=== PATIENT | male | born 1990 | race Caucasian/White ===

== ENCOUNTER 2019-01-11 13:21 | Emergency (ER) | payer BC ==
[~2019-01-11] VITALS: Ht 182.9 cm; Wt 84.1 kg
[~2019-01-11 13:21] MED LIST: ALBUPOW9 XX; PROZ10CA7 PO; TRAZ50TA2 PO
[2019-01-11] MEDS ORDERED: ADACEL/BOOSTRIX VACCINE (DIPHTH/PERTUSS/ACELL/TETANUS)0.5ML SYR (90715) IM ONE (14:15)
[2019-01-11] MEDS ORDERED: LIDOCAINE 2% MDV 20 ML VIAL SC ONE (14:15)
[2019-01-11] MEDS ORDERED: CEPHALEXIN 500 MG CAP PO ONE (15:00)
[2019-01-11] MEDS ORDERED: KEFL500C17 PO (15:12)
[2019-01-11 15:18] VITALS: BP 118/80
== END 2019-01-11 15:22 | disposition home or self-care (01) ==
LOC: M ED 13:21
DX: S61.216A Laceration without foreign body of right little finger without damage to nail, initial encounter (principal); S66.106A Unspecified injury of flexor muscle, fascia and tendon of right little finger at wrist and hand level, initial encounter; W26.0XXA Contact with knife, initial encounter; Y92.090 Kitchen in other non-institutional residence as the place of occurrence of the external cause

== ENCOUNTER 2019-01-13 06:56 | Day surgery (SDC) | payer BC ==
[~2019-01-13] VITALS: Ht 180.3 cm; Wt 78.0 kg
[~2019-01-13 06:56] MED LIST changes: +KEFL500C17 PO; +LIDOCAINE 1% MDV 20ML VIAL SQ PRN
[2019-01-13] MEDS ORDERED: ceFAZolin 2 GM/D5W 50 ML IV BAG (J0690 PER 500MG) As Ordered ONE (07:26)
[2019-01-13] MEDS ORDERED: LR 1,000 ML IV ONE (07:45)
[2019-01-13] MEDS ORDERED: BUPIVACAINE/EPIN 0.25% 30 ML VIAL As Ordered ONE (08:24)
[2019-01-13] MEDS ORDERED: SODIUM BICARBONATE 8.4% INJ 50MEQ 50 ML VIAL As Ordered ONE (08:27)
[2019-01-13] MEDS ORDERED: fentaNYL 250 MCG/5 ML INJECTION (J3010) As Ordered ONE (09:03)
[2019-01-13] MEDS ORDERED: PROPOFOL 200 MG/20 ML VIAL As Ordered ONE ×3 (09:03→10:48)
[2019-01-13] MEDS ORDERED: ONDANSETRON 4MG/2ML VIAL (J2405) As Ordered ONE (09:03)
[2019-01-13] MEDS ORDERED: MIDAZOLAM INJ 2 MG/2 ML VIAL (J2250) As Ordered ONE (09:03)
[2019-01-13] MEDS ORDERED: LIDOCAINE 2% INJ 100 MG/5 ML SDV (FOR ANES.) As Ordered ONE (09:03)
[2019-01-13] MEDS ORDERED: PERCOCET 5MG/325MG TAB PO PRN ×2 (11:45)
[2019-01-13] MEDS ORDERED: MORPHINE 4 MG/ML 1ML VIAL/SYRINGE (J2270) IV PRN (11:45)
[2019-01-13] MEDS ORDERED: ACETAMINOPHEN TAB 650MG DOSE (2X325MG) PO PRN (11:45)
[2019-01-13] MEDS ORDERED: ONDANSETRON 4MG/2ML VIAL (J2405) IV PRN (11:45)
[2019-01-13] MEDS ORDERED: ONDANSETRON 4 MG TAB (S0181) PO PRN (11:45)
[2019-01-13] MEDS ORDERED: LR 1,000 ML IV SCH (11:45)
[2019-01-13 11:55] VITALS: BP 101/56
--- NOTE | 2019-01-14 07:42 | RO ---
DATE OF PROCEDURE: 01/13/2019 PREOPERATIVE DIAGNOSIS: Right 5th digit flexor tendon injury. POSTOPERATIVE DIAGNOSIS: Right 5th digit flexor tendon injury (FDP rupture). PLANNED PROCEDURE: Repair of right 5th digit flexor tendons. PROCEDURE PERFORMED: Repair of right 5th digit flexor digitorum profundus (FDP) tendon in zone 2/[place]. SURGEON: Dr. Yaya Jenkins TYPE OF ANESTHETIC: Local anesthetic plus sedation. MACHINE OPERATIONS SUPERVISOR: Dr. Frazier OPERATIVE PREAMBLE: This 28-year-old man had a volar cut/laceration approximately between the proximal interphalangeal (PIP) and distal interphalangeal (DIP) joint of his right 5th digit. He was cutting bread for his grandmother. Saw him in clinic, and assessed him to have a likely FDP tendon laceration. We talked about the pros, cons, risks, benefits of going ahead with this, and he would like to proceed. Surgical risks include, but are not limited to, infection, neurovascular injury, stiffness, rerupture, pain, bleeding, and other risks including anesthetic complications and . He wished to proceed. PROCEDURE NOTE: In a preoperative assessment room, I had marked his digit. He had an approximately 1 cm in diameter medial to lateral laceration more toward the ulnar side of his right 5th digit. I performed a digital block using a 25 mL syringe. I reina up 10 mL of 0.25% Marcaine with 1:200,000 epinephrine and 1 mL of 8.4% sodium bicarbonate. I injected about 4 mL into the base of the digit, achieving adequate anesthesia preoperatively. OPERATIVE REPORT: Patient brought to the operating theater. I had previously performed digital nerve block. Tourniquet was applied but not inflated. The patient received some mild sedation. Limb was prepped and draped in the usual sterile fashion. I began by opening the incision. I debrided the edges a little bit. I planned out my volar Blu incisions and tried to cross the flexion creases in an oblique manner. I then made my volar Blu zig zag incisions across the palmar aspect of the finger. I identified the digital neurovascular bundles on either side. These did not appear to be injured. They did appear to be intact throughout the case. Unfortunately, I did have to extend the incision right to the tip of the finger and all the way to the metacarpophalangeal joint as the tendon had retracted quite proximally and distally. The distal end of the tendon was unfortunately just really about a 1 cm stump. This had flipped beyond the A5 armando, so then I placed a #4-0 FiberWire stitch in the typical Gomez fashion; and then using a mosquito snap, I passed this through the A5 armando. I then identified the proximal end of the tendon. Again, this was all the way to the level of the A1 armando and I placed a Gomez stitch in this as well using #4-0 FiberWire. I then brought this through the A2 and A4 pulleys all the way to the distal tendon stump. I tied these together, having two sutures crossing as a coarse stitch. I then placed again another Gomez stitch across the tendon, trying to achieve at least a 1 cm bite on each side, which was a little bit difficult given the relative small nature of the distal stump and the fact that the stump was just underneath the A5 armando. Unfortunately, due to the location of the laceration being right underneath the armando, I was unable to perform an epitendinous suture, although it definitely felt stable with full flexion and extension. There was no gaping of the tendon ends. It was gliding nicely in the A2 and A4 pulleys. I woke up the patient and did have him gently flex and extend the fingers, and there was no evidence of triggering or locking or gaping in the tendon site. I thoroughly irrigated the wound. I closed the subcutaneous tissue with interrupted #3-0 Vicryl sutures and then the skin with #3-0 Ethilon in horizontal mattress fashion. I placed Xeroform over top of the wounds. I then placed a little bit of gauze over top of the wound as well and then sterile cast padding along the length in a short-arm fashion all the way up to the tips of the fingers. Placed the hand using a dorsal blocking plaster of Debby splint with the fingers at the metacarpophalangeal (MCP) joints at about 45-50 degrees with flexion and the wrist extended 20-30 degrees in the position of safety. I let the cast fully harden and then overwrapped this with some 4-inch Panda bandages. The patient was transferred off the operating table and taken to postanesthetic care unit in stable condition. Blood loss was minimal. Digital nerve block worked effectively throughout the case. The patient had received 2 grams of IV Ancef prior to the start of the case, and we did perform a preoperative time-out to confirm both the site and the patient. I also used a small amount of the same 0.25% Marcaine and 1:200,000 epinephrine at the wound site when there was just a touch of bleeding. PLAN: For the patient is to followup in about 3-5 days' time for splint off, wound check, and to start some gradual passive range of motion to about 45 degrees. We will switch him into a pre-molded dorsal blocking thermoplastic splint at that point. Hopefully they will be alright with the digital nerve block and Tylenol and Advil, but I advised them that they can call into the clinic if they need any stronger medications than that.
== END 2019-01-13 12:10 | disposition home or self-care (01) ==
LOC: M SDC 06:56
PROVIDERS: ATTEND Orthopaedic Surgery Sports Medicine
DX: S66.126A Laceration of flexor muscle, fascia and tendon of right little finger at wrist and hand level, initial encounter (principal); W26.0XXA Contact with knife, initial encounter; Y92.000 Kitchen of unspecified non-institutional (private) residence as the place of occurrence of the external cause; Y93.9 Activity, unspecified; J45.909 Unspecified asthma, uncomplicated; F17.210 Nicotine dependence, cigarettes, uncomplicated; Y99.9 Unspecified external cause status
CPT/HCPCS: 26370; J0690; J2250; J2405; J3010

== ENCOUNTER 2022-05-07 21:53 | Emergency (ER) | payer BC ==
[~2022-05-07] VITALS: Ht 180.3 cm; Wt 94.8 kg
[~2022-05-07 21:53] MED LIST changes: -LIDOCAINE 1% MDV 20ML VIAL SQ PRN
[2022-05-07] MEDS ORDERED: AMOX875T2 PO (22:00)
[2022-05-08] MEDS ORDERED: CLINDAMYCIN 150MG CAPSULE PO ONE (02:15)
[2022-05-08] MEDS ORDERED: KETOROLAC 60MG 2ML VIAL IM ONE (02:15)
[2022-05-08] MEDS ORDERED: IBUP1TAB7 PO (02:17)
[2022-05-08] MEDS ORDERED: CLEO300C2 PO (02:17)
[2022-05-08 02:35] VITALS: BP 133/79
== END 2022-05-08 02:36 | disposition home or self-care (01) ==
LOC: M ED 21:53
DX: K08.89 Other specified disorders of teeth and supporting structures (principal); F17.200 Nicotine dependence, unspecified, uncomplicated; F12.10 Cannabis abuse, uncomplicated; Z79.899 Other long term (current) drug therapy
CPT/HCPCS: 96372; 99283; J1885

== ENCOUNTER → 2022-09-11 | Outpatient (REF) | payer OTHER ==
[~2022-09-11] MED LIST changes: +AMOX875T2 PO; +CLEO300C2 PO; +IBUP1TAB7 PO
[2022-09-11 17:01] LABS: BASO # 0.1 10^3/uL (0.0-0.2); BASO % 0.9 % (0.0-1.0); EOS # 0.2 10^3/uL (0.0-0.5); EOS % 2.2 % (0.0-3.0); HEMATOCRIT 46.5 % (42.0-52.0); HEMOGLOBIN 15.5 g/dl (13.5-17.5); LYMPH # 2.6 10^3/uL (1.5-5.0); LYMPH % 31.8 % (24.0-44.0); MEAN CORPUSCULAR HGB CONC 33.3 g/dl (32.0-36.5); MEAN CORPUSCULAR VOLUME 89.9 fl (80.0-96.0); MONO # 0.5 10^3/uL (0.0-0.8); MONO % 6.5 % (2.0-8.0); NEUTROPHILS # 4.8 10^3/uL (1.5-8.5); NEUTROPHILS % 58.4 % (36.0-66.0); PLATELET COUNT, AUTOMATED 243 10^3/uL (150-450); RED BLOOD COUNT 5.17 10^6/uL (4.30-6.10); WHITE BLOOD COUNT 8.2 10^3/uL (4.0-10.0)
[2022-09-11 18:56] LABS: ALBUMIN 4.4 GM/DL (3.2-5.2); ALT/SGPT 38 U/L (12-78); BILIRUBIN,TOTAL 0.3 MG/DL (0.2-1.0); BLOOD UREA NITROGEN 18 MG/DL (7-18); CALCIUM LEVEL 9.3 MG/DL (8.5-10.1); CARBON DIOXIDE LEVEL 30 MEQ/L (21-32); CHLORIDE LEVEL 102 MEQ/L (98-107); CREATININE FOR GFR 1.04 MG/DL (0.70-1.30); GLOMERULAR FILTRATION RATE > 60.0 (>60); GLUCOSE, FASTING 87 MG/DL (70-100); PHOSPHORUS LEVEL 3.6 MG/DL (2.5-4.9); POTASSIUM SERUM 4.3 MEQ/L (3.5-5.1); SODIUM LEVEL 138 MEQ/L (136-145); TOTAL PROTEIN 7.5 GM/DL (6.4-8.2)
[2022-09-11 20:37] LABS: HEMOGLOBIN A1c 5.2 %
== END ==
LOC: M LAB REF 16:34
PROVIDERS: ATTEND Nurse Practitioner Family
DX: R55 Syncope and collapse (principal)

== ENCOUNTER → 2024-05-31 | Outpatient (REF) | payer OTHER, MEDICAID ==
[2024-05-31 13:38] LABS: BASO # 0.1 10^3/uL (0.0-0.2); EOS # 0.2 10^3/uL (0.0-0.5); EOS % 3.8 % (0.0-3.0); HEMATOCRIT 48.8 % (42.0-52.0); HEMOGLOBIN 16.3 g/dl (13.5-17.5); LYMPH # 2.2 10^3/uL (1.5-5.0); LYMPH % 36.3 % (24.0-44.0); MEAN CORPUSCULAR HEMOGLOBIN 29.9 pg (27.0-33.0); MEAN CORPUSCULAR HGB CONC 33.4 g/dl (32.0-36.5); MEAN CORPUSCULAR VOLUME 89.4 fl (80.0-96.0); MONO # 0.4 10^3/uL (0.0-0.8); MONO % 6.6 % (2.0-8.0); NEUTROPHILS # 3.2 10^3/uL (1.5-8.5); NEUTROPHILS % 52.1 % (36.0-66.0); PLATELET COUNT, AUTOMATED 252 10^3/uL (150-450); RED BLOOD COUNT 5.46 10^6/uL (4.30-6.10); WHITE BLOOD COUNT 6.1 10^3/uL (4.0-10.0)
[2024-05-31 13:43] LABS: ALBUMIN 4.6 G/DL (3.2-5.2); ALKALINE PHOSPHATASE 47 U/L (46-116); ALT/SGPT 54 U/L (7.0-40); AST/SGOT 35 U/L (<34); BILIRUBIN,TOTAL 0.5 MG/DL (0.3-1.2); BLOOD UREA NITROGEN 17 MG/DL (9-23); CALCIUM LEVEL 9.3 MG/DL (8.5-10.1); CARBON DIOXIDE LEVEL 28 MMOL/L (20-31); CHLORIDE LEVEL 104 MMOL/L (98-107); CHOLESTEROL LEVEL 217 MG/DL (<200); CHOLESTEROL RISK RATIO 5.27 (<5); CREATININE FOR GFR 0.98 MG/DL (0.70-1.30); GLOMERULAR FILTRATION RATE > 60.0 (>60); GLUCOSE, FASTING 165 MG/DL (60-100); HDL CHOLESTEROL 41.1 MG/DL (>40); LDL CHOLESTEROL 154.9 MG/DL (<100); MAGNESIUM LEVEL 1.8 MG/DL (1.8-2.4); NON-HDL-C 175.9 MG/DL; POTASSIUM SERUM 4.1 MMOL/L (3.5-5.1); SODIUM LEVEL 140 MMOL/L (136-145); TOTAL PROTEIN 7.4 G/DL (5.7-8.2); TRIGLYCERIDES LEVEL 105 MG/DL (<150)
[2024-05-31 13:46] LABS: THYROID STIMULATING HORMONE 1.671 uIU/ML (0.55-4.78); TOTAL 25(OH) VITAMIN D 21.6 NG/ML (20.0-100.0)
== END ==
LOC: M LAB REF 12:28
PROVIDERS: ATTEND Nurse Practitioner Family
DX: E55.9 Vitamin D deficiency, unspecified (principal); E66.3 Overweight

== ENCOUNTER → 2024-06-07 | Outpatient (CLI) | payer OTHER, MEDICAID | LOC: M WUC 10:06 | PROVIDERS: ATTEND Nurse Practitioner Family | DX: M54.50 Low back pain, unspecified (principal) ==

== ENCOUNTER 2025-03-26 20:52 | Emergency (ER) | payer MEDICAID, OTHER, SELFPAY ==
[~2025-03-26] VITALS: Ht 180.3 cm; Wt 98.0 kg
[2025-03-27 00:01] VITALS: BP 117/82; TEMP 97.7; O2SAT 98
== END 2025-03-27 01:05 | disposition left against medical advice (07) ==
LOC: M ED 20:52
DX: Z53.21 Procedure and treatment not carried out due to patient leaving prior to being seen by health care provider (principal)